=== PATIENT | female | born 1985 ===

== ENCOUNTER 2020-09-15 09:00 | Outpatient (CLI) | payer OTHER | END 2020-09-15 09:05 | disposition home or self-care (01) | LOC: PPH VACUNA 09:00 | DX: Z23 Encounter for immunization (principal) ==

== ENCOUNTER 2020-10-06 08:00 | Outpatient (CLI) | payer OTHER | END 2020-10-06 08:30 | disposition home or self-care (01) | LOC: PPH VACUNA 08:00 | DX: Z23 Encounter for immunization (principal) ==